=== PATIENT | male | born 1985 | race Two or more races ===

== ENCOUNTER 2024-09-03 18:52 | Emergency (ER) | payer OTHER ==
[~2024-09-03] VITALS: Ht 162.6 cm; Wt 125.0 kg
[2024-09-03 19:20] VITALS: BP 152/92; PULSE 87; RESP 18; TEMP 98.4; O2SAT 95
--- NOTE | 2024-09-03 20:17 | ED.PDOC ---
Back pain HPI HPI Comments PT C/O RIGHT LOWER BACK PAIN FOR 2 DAYS. STATES PAIN IS SHARP/INTERMITTENT. CANNOT RECALL ANY ACCIDENT/INJURY TO CAUSE THE PAIN. DENIES NUMBNESS, WEAKNESS, LOSS OF BOWEL BLADDER CONTROL SADDLE ANESTHESIA OR ANY FOCAL NEURO DEFICITS Chief Complaint: Back Pain Time Seen by MD: 19:21 Reviewed Notes: Nurses Notes, Medications, Allergies Allergies: Coded Allergies: NO KNOWN ALLERGIES (Unverified , 09/03/24) Home Meds Active Scripts Methylprednisolone (Medrol Dosepak) 4 Mg Sekou, 4 MG PO UD for 6 Days, #21 TAB UAD Prov:MARY LOU SARMIENTO [facility] 09/03/24 Tizanidine Hydrochloride (Tizanidine Hcl) 4 Mg Tab, 4 MG PO BID PRN for 5 Days, #10 TAB Prov:MARY LOU SARMIENTO [facility] 09/03/24 Information Source: Patient Mode of Arrival: Ambulatory Past Medical History PAST MEDICAL HISTORY: Denies Surgical History: Denies all surgeries Family History Family History: Unknown Social History Smoker: Non-Smoker Alcohol: Denies ETOH Use Drugs: Denies Drug Use Constitutional: denies: chills, diaphoresis, fatigue, fever, malaise, sweats, weakness, others EENTM: denies: blurred vision, double vision, ear bleeding, ear discharge, ear drainage, ear pain, ear ringing, eye pain, eye redness, hearing loss, mouth pain, mouth swelling, nasal discharge, nose bleeding, nose congestion, nose pain, photophobia, tearing, throat pain, throat swelling, voice changes, others Respiratory: denies: cough, hemoptysis, orthopnea, SOB at rest, shortness of breath, SOB with excertion, stridor, wheezing, others Cardiovascular: denies: chest pain, dizzy spells, diaphoresis, Dyspnea on exertion, edema, irregular heart beat, left arm pain, lightheadedness, palpitations, PND, syncope, others Genitourinary: denies: burning, dysuria, flank pain, frequency, hematuria, incontinence, penile discharge, penile sore, pain, testicle pain, testicle swelling, urgency, others Neurological: denies: dizziness, fainting, headache, left sided numbness, left sided weakness, numbness, paresthesia, pre-existing deficit, right sided numbness, right sided weakness, seizure, speech problems, tingling, tremors, weakness, others Musculoskeletal: reports: back pain; denies: gout, joint pain, joint swelling, muscle pain, muscle stiffness, neck pain, others Integumetry: denies: bruises, change in color, change in hair/nails, dryness, laceration, lesions, lumps, rash, wounds, others Allergic/Immunocompromised: denies: Difficulty Healing, Frequent Infections, Hives, Itching, others Hematologic/Lymphatic: denies: anemia, blood clots, easy bleeding, easy bruising, swollen glands, others Endocrine: denies: excessive hunger, excessive sweating, excessive thirst, excessive urination, flushing, intolerance to cold, intolerance to heat, unexplained weight gain, unexplained weight loss, others Psychiatric: denies: anxiety, bipolar disorder, depression, hopeless, panic disorder, schizophrenia, sleepless, suicidal, others Physical Exam General Appearance: No Apparent Distress, Normal HEENT: Pharynx Normal Neck: Full Range of Motion, Non-Tender Respiratory: Lungs Clear, No Respiratory Distress, Normal Breath Sounds Cardiovascular: No Edema, No JVD, No Murmur, No Gallop, Normal Peripheral Pulses, Regular Rate/Rhythm Breast Exam: Deferred Gastrointestinal: No Organomegaly, Non Tender, No Pulsatile Mass, Normal Bowel Sounds, Soft Genitalia: Deferred Pelvic: Deferred Rectal: Deferred Extremities: Normal capillary refill, Normal inspection, Normal range of mayuri on, Non-tender, No pedal edema Musculoskeletal : Location: Right Extremity Location: Back (TENDERNESS PALPATED OVER RIGHT THORACIC MUSCULATURE THORACIC SPINE NO NOTED TENDERNESS STEP-OFFS.) Apperance: Normal Neurologic: Alert, medical health researcher II-XII nml as Tested, No Motor Deficits, Normal Affect, Normal Mood, No Sensory Deficits Cerebellar Function: Normal Reflexes: Normal Skin: Dry, Normal Color, Warm Lymphatic: No Adenopathy Was a procedure done? Was a procedure done?: No Back Pain Differential Dx Differential Diagnosis: Fracture, Musculoskeletal Pain X-Ray, Labs, Meds, VS Vital Signs Date Time Temp Pulse Resp B/P (MAP) Pulse Ox O2 Delivery O2 Flow Rate FiO2 09/03/24 19:20 98.4 87 18 152/92 (112) 95 98.4 09/03/24 19:20 98.4 87 18 152/92 (112) 95 98.4 09/03/24 19:20 Room Air Lab Test 09/03/24 20:20 Range/Units Urine Color Light-yellow Yellow Urine Clarity Clear Clear Urine pH 5.5 5.0-9.0 Urine Specific [place] 1.017 1.001-1.035 Urine Protein Negative Negative Urine Ketones Negative Negative Urine Blood Negative Negative /uL Urine Nitrite Negative Negative Urine Bilirubin Negative Negative Urine Urobilinogen Normal Negative mg/dL Urine Leukocyte Esterase Negative Negative /uL Urine RBC <1 0 - 3 /hpf Urine Microscopic WBC < 1 0-3 /HPF Urine Squamous Epithelial Cells None seen <5 /hpf Urine Bacteria None seen None Seen /hpf Urine Glucose Normal Normal mg/dL Current Medications Medications (Trade) Dose Ordered Sig/Sue Route Start Time Stop Time Status Last Admin Ketorolac Tromethamine (Toradol Injection) 60 mg ONCE ONCE IM 09/03/24 20:30 09/03/24 20:31 DC 09/03/24 20:26 X-Ray, Labs, Meds, VS Comment THORACIC SPINE X-RAY SHOWS NO ACUTE FRACTURES OSSEOUS LESIONS OR SUBLUXATIONS. SHOWS DEGENERATIVE CHANGES AND CURVATURE UA WITHIN NORMAL LIMITS NO SIGNS AND SYMPTOMS OF INFECTION OR POSSIBLE KIDNEY STONE. PATIENT WAS GIVEN TORADOL 60 MG IM HE REPORTS IMPROVEMENT IN PAIN RATES PAIN 1/10 ON PAIN SCALE REQUESTING DISCHARGE AT THIS TIME SCRIPT MUSCLE RELAXER AND MEDROL DOSEPAK ADVISED TO TAKE MEDICATIONS PRESCRIBED SIDE EFFECTS DISCUSSED. ADVISED CALL HIS PCP AND SCHEDULE AN APPOINTMENT IN 2 DAYS CONSIDER FURTHER IMAGING SUCH MRI OR REFERRAL FOR PHYSICAL THERAPY IF PAIN CONTINUES ADVISED ON ER RETURN PRECAUTIONS PATIENT INDICATES UNDERSTANDING AND AGREES WITH DISCHARGE PLAN OF CARE. Time of 1ST Reevaluation: 20:17 Reevaluation 1ST: Unchanged Time of 2ND Reevaluation: 22:05 Reevaluation 2ND: Improved Patient Education/Counseling: Diagnosis, Treatment, Prognosis, Need For Follow Up Family Education/Counseling: No Family Present Departure 1 Departure Time of Disposition: 22:10 Impression: Primary Impression: Lumbar sprain Qualified Codes: S33.5XXA - Sprain of ligaments of lumbar spine, initial encounter Additional Impression: Musculoskeletal pain Disposition: HOME / SELF CARE / HOMELESS Condition: Stable e-Prescriptions Methylprednisolone (Medrol Dosepak) 4 Mg Sekou 4 MG PO UD for 6 Days, #21 TAB UAD Prov: MARY LOU SARMIENTO 09/03/24 Tizanidine Hydrochloride (Tizanidine Hcl) 4 Mg Tab 4 MG PO BID PRN for 5 Days, #10 TAB Prov: MARY LOU SARMIENTO 09/03/24 Discharged With: Self Critical Care Note Critical Care Time?: No Stability Stability form required: MARY LOU Sharpe Sep 03, 2024 20:17
[2024-09-03] MEDS: KETOROLAC TROMETH 60MG/2ML VIAL IM ONE (20:26)
--- NOTE | 2024-09-03 21:02 | DVH ---
INDICATION: Right-sided thoracic pain COMPARISON: None TECHNIQUE: 2 views of the thoracic spine were obtained. FINDINGS: Vertebral body heights are well preserved there is calcified anterior longitudinal ligament in the ve rtebral bodies appear to have anterior bridging osteophytes at nearly all levels. There is increased kyphotic curvature as a result. No significant scoliosis seen. IMPRESSION: 1. Degenerative enthesopathy
[2024-09-03 21:26] LABS: Urine Bacteria None Seen /hpf (None Seen)
[2024-09-03 21:45] LABS: Urine Blood Negative /uL (Negative); Urine Clarity Clear (Clear); Urine Color Light-Yellow (Yellow); Urine Protein, UAD Negative (Negative); Urine Specific Gravity 1.017 (1.001-1.035); Urine Squamous Epithelial Cell None Seen /hpf (<5); Urine Urobilinogen Normal (Negative); Urine WBC < 1 /HPF (0-3); Urine pH 5.5 (5.0-9.0)
[2024-09-03] MEDS ORDERED: TIZA-142 PO (21:58)
[2024-09-03] MEDS ORDERED: METH4PAK PO (21:58)
== END 2024-09-03 22:07 | disposition home or self-care (01) ==
LOC: ER 18:52
DX: S33.5XXA Sprain of ligaments of lumbar spine, initial encounter (principal); S33.8XXA Sprain of other parts of lumbar spine and pelvis, initial encounter; Z79.899 Other long term (current) drug therapy; X58.XXXA Exposure to other specified factors, initial encounter; Y93.89 Activity, other specified; Y92.89 Other specified places as the place of occurrence of the external cause; Y99.8 Other external cause status
CPT/HCPCS: 72070; 81001; 96372; 99284; J1885